=== PATIENT | male | born 1950 | race Hispanic/Latino ===

== ENCOUNTER → 2021-10-07 | Outpatient (CLI) | payer OTHER ==
[~2021-10-07] MED LIST: DIATRIZOATE MEGL/DIATRIZOA SOD 30 ML BTL PO ONE; IOPAMIDOL 370 MG/ML 100 ML INFUS..BTL INJ ONE
[2021-10-07 16:37] LABS: CREATININE, SERUM 0.76 mg/dL (0.72-1.25)
== END ==
LOC: CT 15:11
PROVIDERS: ATTEND Family Medicine
DX: K40.90 Unilateral inguinal hernia, without obstruction or gangrene, not specified as recurrent (principal)
CPT/HCPCS: 36415; 74177; 82565; 84520; Q9967

== ENCOUNTER → 2021-11-02 | Day surgery (SDC) | payer OTHER, MEDICARE ==
[2021-10-31 15:40] LABS: BASOPHILS # (AUTO) 0.1 (0.0-0.1); BASOPHILS % 0.9 % (0.0-1.0); EOSINOPHILS # (AUTO) 0.1 (0.0-0.4); EOSINOPHILS % 1.5 % (0.0-6.0); HEMATOCRIT 44.2 % (38.2-49.6); HEMOGLOBIN 14.8 g/dL (14.0-18.0); LYMPHOCYTES % 25.5 % (18.0-39.1); MEAN CORPUSCULAR HEMOGLOBIN 31.6 pg (28-32); MEAN CORPUSCULAR HGB CONC 33.5 g/dL (31-35); MEAN CORPUSCULAR VOLUME 94.2 fL (81-99); MONOCYTES # (AUTO) 0.7 (0.2-0.8); MONOCYTES % 8.8 % (4.4-11.3); NEUTROPHILS # (AUTO) 4.9 (2.1-6.9); NEUTROPHILS % 62.9 % (38.7-80.0); PLATELET COUNT 194 x10e3/uL (140-360); RED BLOOD COUNT 4.69 x10e6/uL (4.3-5.7); RED CELL DISTRIBUTION WIDTH 12.7 % (11.7-14.4)
[2021-10-31 16:02] LABS: ANION GAP 12.7 mmol/L (8-16); BLOOD UREA NITROGEN 9 mg/dL (7-26); BUN/CREATININE RATIO 11 (6-25); CALCIUM 8.6 mg/dL (8.4-10.2); CARBON DIOXIDE 26 mmol/L (22-29); CHLORIDE 106 mmol/L (98-107); GLUCOSE 95 mg/dL (74-118); POTASSIUM 3.7 mmol/L (3.5-5.1); SODIUM 141 mmol/L (136-145)
[~2021-11-02] MED LIST changes: +BUPIVACAINE 0.25% 30ML SDV ONE; -DIATRIZOATE MEGL/DIATRIZOA SOD 30 ML BTL PO ONE; +HYDROCODONE/APAP 7.5MG-325MG 1 EA TAB ONE; -IOPAMIDOL 370 MG/ML 100 ML INFUS..BTL INJ ONE; +LIDOCAINE 2% /EPINEPHRINE 20 ML SDV INJ ONE; +VASOTEC5 MG PO
[2021-11-02 12:15] VITALS: BP 142/84
== END | disposition home or self-care (01) ==
LOC: OR 06:25
PROVIDERS: ATTEND Surgery
DX: K40.90 Unilateral inguinal hernia, without obstruction or gangrene, not specified as recurrent (principal); I10 Essential (primary) hypertension; H91.90 Unspecified hearing loss, unspecified ear; Z01.810 Encounter for preprocedural cardiovascular examination; Z01.812 Encounter for preprocedural laboratory examination; Z01.818 Encounter for other preprocedural examination; Z20.822 Contact with and (suspected) exposure to COVID-19; Z79.899 Other long term (current) drug therapy
CPT/HCPCS: 0223U; 36415; 49505; 71046; 80048; 85025; 88302; 93005; C1781; J2001